=== PATIENT | female | born 1990 | race Caucasian/White ===

== ENCOUNTER 2019-12-26 14:02 | Outpatient (CLI) | payer MEDICAID ==
--- NOTE | 2019-12-26 20:02 | ULT ---
LEFT BREAST ULTRASOUND: 12/26/19 HISTORY: Two palpable abnormalities in the left breast. Real time imaging of the left breast was performed at the 1 o'clock position of the palpable abnormal ity. No finding was seen other than a ridge of breast tissue. At the 10 o'clock position, a well cir cumscribed 6 x 12 mm solid nodule was demonstrated. 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 IMPRESSION: Palpable abnormality at the 10 o'clock position corresponds to a solid mass which has features most s uggestive of fibroadenoma. This was discussed with the patient. I suggested six month follow-up ultra sound for assessment for stability; however, she was uncomfortable with this and wanted to do an ultr asound directed biopsy which we can schedule. She was going to think this over and discuss with her [facility] doctor. We can perform the ultrasound directed biopsy if requested. POS: NENITA
== END 2019-12-26 14:03 | disposition home or self-care (01) ==
LOC: BICULT 14:02
PROVIDERS: ATTEND Obstetrics & Gynecology
DX: N60.12 Diffuse cystic mastopathy of left breast (principal); N63.22 Unspecified lump in the left breast, upper inner quadrant

== ENCOUNTER 2022-10-07 12:49 | Emergency (ER) | payer MEDICAID, SELFPAY ==
[~2022-10-07 12:49] MED LIST: Iopamidol-370 76% 500 ML MDV (1 ML CHARGE) ONE
[2022-10-07 13:49] LABS: #Basophils 0.1 thou/uL (0.0-0.2); #Eosinphils 0.1 thou/uL (0.0-0.7); #Monocytes 0.9 thou/uL (0.11-0.59); #Neutrophils 5.6 thou/uL (1.40-6.50); %Basophils 0.9 % (0.0-1.0); %Eosinophils 0.8 % (0.0-10.0); %Lymphocytes 22.9 % (21.0-51.0); %Monocytes 10.6 % (0.0-10.0); %Neutrophils 64.8 % (42.0-75.0); Hemoglobin 13.6 g/dL (12.0-16.0); Mean Corpuscular Hemoglobin 33.6 pg (27.0-31.0); Mean Platelet Volume 7.1 fL (7.4-10.4); Platelet Count 226 10x3/uL (130-400); RBC Distribution Width 11.6 % (11.5-14.5); Red Blood Cell (RBC) Count 4.04 mill/uL (4.20-5.40); White Blood Cell (WBC) Count 8.7 10x3/uL (4.8-10.8)
[2022-10-07] MEDS ORDERED: Ondansetron PF 4 MG/2 ML Vial ONE (13:50)
[2022-10-07] MEDS ORDERED: Ketorolac Tromethamine 30 MG/ML VIAL ONE (13:50)
[2022-10-07 13:54] LABS: BHCG - Serum Negative (NEGATIVE); Pregs Control Background? CLEAR/WHITE (CLR/WHITE); Pregs Control Bar Appear? YES (CONTROL BAR)
[2022-10-07 14:14] LABS: ALT (SGPT) 19 U/L (8-55); AST (SGOT) 16 U/L (5-34); Acetaminophen Less than 10.0 mcg/mL (10.0-30.0); Albumin 3.9 g/dL (3.5-5.0); Alcohol Less than 10 mg/dL (Less than 10); Alkaline Phosphatase 75 U/L (40-110); Anion Gap 11 mmol/L (10-20); BUN (Urea Nitrogen) 11 mg/dL (7.0-18.7); Bilirubin, Total 0.3 mg/dL (0.2-1.2); Calc. Creatinine Clearance 0 mL/min (70-130); Calcium 9.1 mg/dL (7.8-10.44); Carbon Dioxide 26 mmol/L (22-29); Chloride 107 mmol/L (98-107); Estimated GFR 115; Globulin 2.9 g/dL (2.4-3.5); Glucose 92 mg/dL (70-105); Potassium 4.1 mmol/L (3.5-5.1); Protein, Total 6.8 g/dL (6.0-8.3); Salicylate Less than 8.0 mg/dL (15.0-30.0); Sodium 140 mmol/L (136-145)
== END 2022-10-07 16:13 | disposition home or self-care (01) ==
LOC: ERS 12:49
DX: K04.7 Periapical abscess without sinus (principal); F17.210 Nicotine dependence, cigarettes, uncomplicated
CPT/HCPCS: 36415; 70487; 80053; 80307; 83605; 84703; 85025; 96374; 96375; J1885; J2405; Q9967